=== PATIENT | female | born 1975 | race Caucasian/White ===

== ENCOUNTER 2023-10-15 19:46 | Emergency (ER) | payer MEDICARE ==
[~2023-10-15] VITALS: Ht 170.2 cm; Wt 79.5 kg
[~2023-10-15 19:46] MED LIST: CEPHALEXIN500 M1 PO; NEURONTIN100 MG/CAP PO; PERCOCET 325 MG1 TA2 PO
[2023-10-15 19:58] VITALS: TEMP 98.3
[2023-10-15] MEDS ORDERED: Ondansetron 4 MG/2 ML VIAL IV ONE (20:30)
[2023-10-15] MEDS ORDERED: LR 1,000 ML IV ONE (20:30)
[2023-10-15] MEDS ORDERED: Acetaminophen 500 MG TAB PO ONE (21:45)
[2023-10-15 22:20] VITALS: BP 110/72; PULSE 80
== END 2023-10-15 22:20 | disposition home or self-care (01) ==
LOC: COL.ER 19:46
DX: M54.50 Low back pain, unspecified (principal)
CPT/HCPCS: J2405; J7120

== ENCOUNTER 2023-12-17 01:19 | Emergency (ER) | payer MEDICARE ==
[~2023-12-17] VITALS: Ht 170.2 cm; Wt 70.5 kg
[2023-12-17 02:30] LABS: BASO # 0.1 K/mm3 (0.0-0.2); BASO % 0.6 % (0.0-2.0); EOS # 0.1 K/mm3 (0.0-0.7); EOS % 1.1 % (0.0-4.0); GRAN # 5.2 K/mm3 (1.4-6.5); GRAN % 66.2 % (42.2-75.2); HEMATOCRIT 38.6 % (37.0-47.0); HEMOGLOBIN 12.8 g/dl (12.5-16.0); LYMPH # 1.7 K/mm3 (1.2-3.4); LYMPH % 21.3 % (20.0-51.0); MEAN CELL VOLUME 81 fl (80.0-100.0); MEAN CORPUSCULAR HEMOGLOBIN 27 pg (27-31); MEAN CORPUSCULAR HGB CONC 33 g/dl (33.0-37.0); MEAN PLATELET VOLUME 10.9 fl (7.4-10.4); MONO # 0.8 K/mm3 (0.1-0.6); MONO % 10.7 % (1.7-9.3); PLATELET COUNT 303 K/mm3 (130-400); RED BLOOD COUNT 4.76 M/mm3 (4.10-5.30); REDCELL DISTRIBUTION WIDTH-CV 13.6 % (11.5-14.5)
[2023-12-17 02:44] LABS: ALANINE AMINOTRANSFERASE 21 U/L (0-55); ALBUMIN 3.7 g/dL (3.5-5.0); ALKALINE PHOSPHATASE 98 U/L (40-150); ANION GAP 13 mmol/L (7-16); AST,SGOT 24 U/L (5-34); BILIRUBIN,TOTAL 0.4 mg/dL (0.2-1.2); BLOOD UREA NITROGEN 16 mg/dL (7-19); CHLORIDE 100 mEq/L (98-107); CREATININE, serum 0.78 mg/dL (0.57-1.11); GLUCOSE 109 mg/dL (70-99); POTASSIUM 3.1 mEq/L (3.5-4.5); SODIUM 136 mEq/L (136-145); TOTAL PROTEIN 6.4 g/dl (6.2-8.1)
[2023-12-17 02:50] LABS: ALCOHOL(ethanol),MEDICAL < 10 mg/dL (0-10); SALICYLATE < 5.0 mg/dL (15.0-30.0)
--- NOTE | 2023-12-17 12:28 | NUR ---
FILIBERTO received call from [facility] Worker Leslie asking SW to meet with patient due to patient refusing to speak with staff or [place] screener for psych assessment for SI. SW reviewed chart. SW met with patient in room, patient covered with blankets but did acknowledge SW. Patient slow to respond to questions and very soft spoken. At times, patient would just look at SW with furrowed brow when asked questions and not give answer. Patient did state that she is homeless and has been staying with "Delphine" who patient eventually identified as a friend. Patient stated "I don't know Delphine very well. She just introduced herself and let me stay with her." Patient denied knowing Juliana (name listed as emergency contact). she did acknowledge knowing Mike (also listed as contact) as a friend but did not reveal any other information. Patient unable to provide any contact information for Delphine. Patient denied having insurance and stated again she is homeless and has no insurance. SW questioned why patient would not speak with [facility] after coming to hospital for help. No response. Patient again stating "I have suicidal ideation". and would correct SW with this statement when SW mentioned patient having "thoughts" or "wanting to hurt herself." FILIBERTO spoke with ED provider and RN to inform that FIL[facility]ERTO would speak with Director Mesha Patel and call [facility] back to discuss concerns. RN then called FIL[facility]ERTO again stating that [facility] has called back and asked if they still need to screen patient. FILIBERTO informed RN that [facility] does indeed need to screen patient.
[2023-12-17 18:50] VITALS: BP 126/71; PULSE 79; TEMP 98.7
== END 2023-12-17 21:45 | disposition home or self-care (01) ==
LOC: COL.ER 01:19
PROVIDERS: Emergency Medicine
DX: F23 Brief psychotic disorder (principal)